=== PATIENT | female | born 1960 | race Caucasian/White ===

== ENCOUNTER 2022-11-17 01:03 | Outpatient (CLI) | payer MEDICAID | END 2022-11-17 23:59 | disposition critical access hospital (66) | LOC: EMS 01:03 | DX: T40.5X1A Poisoning by cocaine, accidental (unintentional), initial encounter (principal); I46.8 Cardiac arrest due to other underlying condition | CPT/HCPCS: A0425; A0427; A0999 ==

== ENCOUNTER 2022-11-17 01:21 | Observation (INO) | payer MEDICAID ==
[2022-11-17] MEDS ORDERED: SODIUM CHLORIDE 0.9% 1,000 ML IV STA (01:48)
[2022-11-17 01:55] LABS: MUDS CUTOFF CONCENTRATIONS CUTOFF CONC BELOW:
[2022-11-17 01:57] LABS: BASOPHILS # (AUTO) 0.1 10^3/uL (0.0-0.1); BASOPHILS % (AUTO) 0.5 %; EOSINOPHILS # (AUTO) 0.1 10^3/uL (0.0-0.7); EOSINOPHILS % (AUTO) 1.2 %; HCT - HEMATOCRIT 44.8 % (37.0-47.0); HGB - HEMOGLOBIN 14.3 g/dL (12.0-16.0); LYMPHOCYTES # (AUTO) 3.4 10^3/uL (1.5-3.5); LYMPHOCYTES % (AUTO) 36.9 %; MEAN CORPUSCULAR HEMOGLOBIN 29.4 pg (27.0-31.0); MEAN CORPUSCULAR HGB CONC 31.9 g/dL (32.0-36.0); MEAN PLATELET VOLUME 9.2 fL (7.9-10.8); MONOCYTES # (AUTO) 0.6 10^3/uL (0.0-1.0); MONOCYTES % (AUTO) 6.3 %; NEUTROPHILS % (AUTO) 54.2 %; PLT - PLATELET COUNT 288 10^3/uL (130-450); RED BLOOD COUNT 4.87 10^6/uL (4.20-5.40); RED CELL DISTRIBUTION WIDTH 12.1 % (12.0-15.0); WHITE BLOOD COUNT 9.3 x10^3/uL (4.8-10.8)
[2022-11-17 01:59] LABS: BILIRUBIN,URINE NEGATIVE (NEGATIVE); GLUCOSE, URINE (UA) 250 mg/dL (NEGATIVE); KETONES,URINE (UA) NEGATIVE (NEGATIVE); LEUKOCYTE ESTERASE, URINE MODERATE (NEGATIVE); NITRITE,URINE NEGATIVE (NEGATIVE); OCCULT BLOOD,URINE SMALL (NEGATIVE); PROTEIN,URINE 100 mg/dL (NEGATIVE); UROBILINOGEN,URINE 0.2 (NORMAL) E.U./dL (NORMAL)
[2022-11-17 02:06] LABS: CLARITY,URINE CLEAR (CLEAR)
[2022-11-17 02:12] LABS: SQUAMOUS EPITHELIAL CELL,UR RARE Squamous (<= Few); WBC CLUMPS,URINE PRESENT; WBC,URINE >25 /HPF (0-5)
[2022-11-17 02:13] LABS: AMPHETAMINE SCREEN,URINE POSITIVE (NEGATIVE); BACTERIA,URINE Many /HPF (None Seen); BARBITURATE SCREEN,UR NEGATIVE (NEGATIVE); BENZODIAZEPINES SCREEN, URINE NEGATIVE (NEGATIVE); COCAINE SCREEN URINE POSITIVE (NEGATIVE); METHADONE SCREEN, URINE NEGATIVE (NEGATIVE); METHAMPHETAMINES SCREEN, URINE POSITIVE (NEGATIVE); OPIATE SCREEN, URINE NEGATIVE (NEGATIVE); OXYCODONE SCREEN, URINE NEGATIVE (NEGATIVE); PROPOXYPHENE SCREEN, URINE NEGATIVE (NEGATIVE); THC CANNABINOID SCREEN, URINE NEGATIVE (NEGATIVE); TRICYCLIC ANTIDEPRESSANT,URINE NEGATIVE (NEGATIVE)
[2022-11-17 02:19] LABS: THYROID STIMULATING HORMONE 4.27 uIU/mL (0.34-5.60)
[2022-11-17 02:20] LABS: ACETAMINOPHEN 0.2 ug/mL; ALBUMIN/GLOBULIN RATIO 1.5 (1.0-2.2); ALKALINE PHOSPHATASE 69 IU/L (42-121); ALT ALANINE AMINOTRANSFERASE 106 IU/L (10-60); AST ASPARTATE AMINOTRANSFERASE 137 IU/L (10-42); BILIRUBIN,TOTAL 0.5 mg/dL (0.2-1.0); BUN - BLOOD UREA NITROGEN 14 mg/dL (6-20); CALCIUM 8.6 mg/dL (8.5-10.3); CARBON DIOXIDE - CO2 26 mmol/L (21-32); CHLORIDE 106 mmol/L (101-111); CK- CREATINE KINASE 82 IU/L (30-223); CREATININE 0.8 mg/dL (0.6-1.3); ETOH - ETHANOL < 10.0 mg/dL; GFR - MDRD 73 (>89); GLUCOSE 205 mg/dL (74-104); LIPASE 52 U/L (11-82); MAGNESIUM 1.9 mg/dL (1.7-2.3); POTASSIUM 3.2 mmol/L (3.5-4.5); SODIUM 138 mmol/L (135-145); TOTAL PROTEIN 6.7 g/dL (6.4-8.9)
[2022-11-17 02:24] LABS: SALICYLATE < 1.5 mg/dL
[2022-11-17] MEDS ORDERED: POTASSIUM CHLOR 10 MEQ/100 ML 10 MEQ/100 ML BAG IV STA (02:28)
--- NOTE | 2022-11-17 03:20 | ED Physician Documentation ---
History of Present Illness - Stated complaint Stated Complaint: OD - Chief complaint Chief Complaint: Neuro - History obtained from History obtained from: EMS - Additonal information Additional information: 61yF presents to the ED bibems s/p likely fentanyl overdose. patient required 8mg IN narcan in the field and upon arrival to the ED was protecting airway, breathing spontaneously. further history limited by patient intoxication. PD PAST MEDICAL HISTORY - Past Medical History Past Medical History: Yes Psych: Other Other Past Medical History: Admitted of abusing Meth - Past Surgical History Past Surgical History: No - Present Medications Home Medications: Ambulatory Orders Medication Instructions Recorded Confirmed No Known Home Medications 11/17/22 11/17/22 - Allergies Allergies/Adverse Reactions: Allergies Allergy/AdvReac Type Severity Reaction Status Date / Time No Known Drug Allergies Allergy Verified 11/17/22 01:50 - Social History Does the pt smoke?: Yes Smoking Status: Current every day smoker Does the pt drink ETOH?: Yes Does the pt have substance abuse?: Yes Substance Use and Type: Meth - Immunizations Immunizations are current?: Yes - POLST Patient has POLST: No PD ED PE NORMAL - Vitals Vital signs reviewed: Yes - General General: No acute distress, Other (elderly appearing. protecting airway, breathing spontaneously. clinically intoxicated) - HEENT HEENT: Atraumatic, PERRL, EOMI - Neck Neck: Supple, no meningeal sign - Cardiac Cardiac: RRR - Respiratory Respiratory: No respiratory distress, Clear bilaterally - Abdomen Abdomen: Non tender, Non distended - Derm Derm: Normal color, Warm and dry - Extremities Extremities: No deformity - Neuro Eye Opening: To Voice Motor: Obeys Commands Verbal: Confused GCS Score: 13 - Psych Psych: Other (clinically intoxicated) Results - Vitals Vitals: Vital Signs - 24 hr 11/17/22 11/17/22 11/17/22 01:21 01:30 02:00 Temperature 36.0 C L Heart Rate 85 78 77 Respiratory 18 12 12 Rate Blood Pressure 152/79 H 134/85 H 118/77 O2 Saturation 97 95 95 If not protocol : Oxygen Flow, liters/minute 11/17/22 11/17/22 11/17/22 02:10 02:48 03:00 Temperature 36.3 C L Heart Rate 77 81 83 Respiratory 12 12 12 Rate Blood Pressure 118/77 110/75 149/68 H O2 Saturation 96 94 94 If not protocol : Oxygen Flow, liters/minute 11/17/22 11/17/22 11/17/22 03:30 04:00 04:19 Temperature Heart Rate 81 82 83 Respiratory 13 17 13 Rate Blood Pressure 148/85 H 123/72 123/72 O2 Saturation 95 81 L If not protocol : Oxygen Flow, liters/minute 11/17/22 11/17/22 11/17/22 04:20 04:30 05:00 Temperature Heart Rate 83 79 Respiratory 13 20 Rate Blood Pressure 113/72 110/67 O2 Saturation 98 100 100 If not protocol 2 2 2 : Oxygen Flow, liters/minute 11/17/22 06:41 Temperature Heart Rate 81 Respiratory 13 Rate Blood Pressure 106/71 O2 Saturation 100 If not protocol 2 : Oxygen Flow, liters/minute Oxygen O2 Source Nasal cannula Oxygen Flow Rate 2 - Labs Labs: Laboratory Tests 11/17/22 11/17/22 11/17/22 01:35 01:35 01:45 WBC 9.3 RBC 4.87 Hgb 14.3 Hct 44.8 MCV 92.0 MCH 29.4 MCHC 31.9 L RDW 12.1 Plt Count 288 MPV 9.2 Neut # (Auto) 5.0 Lymph # (Auto) 3.4 [place] # (Auto) 0.6 Eos # (Auto) 0.1 Baso # (Auto) 0.1 Absolute Nucleated RBC 0.00 Nucleated RBC % 0.0 Sodium 138 Potassium 3.2 L Chloride 106 Carbon Dioxide 26 Anion Gap 6.0 BUN 14 Creatinine 0.8 Estimated GFR (MDRD) 73 L Glucose 205 H Calcium 8.6 Magnesium 1.9 Total Bilirubin 0.5 AST 137 H ALT 106 H Alkaline Phosphatase 69 Total Creatine Kinase 82 Total Protein 6.7 Albumin 4.0 Globulin 2.7 Albumin/Globulin Ratio 1.5 Lipase 52 TSH 4.27 Urine Color YELLOW Urine Clarity CLEAR Urine pH 7.0 Ur Specific [place] 1.020 Urine Protein 100 H Urine Glucose (UA) 250 H Urine Ketones NEGATIVE Urine Occult Blood SMALL H Urine Nitrite NEGATIVE Urine Bilirubin NEGATIVE Urine Urobilinogen 0.2 (NORMAL) Ur Leukocyte Esterase MODERATE H Urine RBC 11-25 H Urine WBC >25 H Urine WBC Clumps PRESENT Ur Squamous Epith Cells RARE Squamous Urine Bacteria Many H Ur Microscopic Review INDICATED Urine Culture Comments INDICATED Salicylates < 1.5 Urine Opiates Screen NEGATIVE Ur Oxycodone Screen NEGATIVE Urine Methadone Screen NEGATIVE Ur Propoxyphene Screen NEGATIVE Acetaminophen 0.2 Ur Barbiturates Screen NEGATIVE Ur Tricyclics Screen NEGATIVE Ur Phencyclidine Scrn NEGATIVE Ur Amphetamine Screen POSITIVE H U Methamphetamines Scrn POSITIVE H U Benzodiazepines Scrn NEGATIVE Urine Cocaine Screen POSITIVE H U Cannabinoids Screen NEGATIVE Ethyl Alcohol < 10.0 PD Medical Decision Making - ED course ED course: 61yF presents s/p likely fentanyl overdose with 8mg IN narcan recruitment manager. Patient protecting airway, breathing spontaneously. CBC, abdominal panel, tox labs performed. looks okay with exception of some hypokalemia. 1L IVF administered. supplemental IV potassium provided. Patient still intoxicated at time of 7am shift change, requiring 1L o2 nasal cannula, breathing spontaneously at 14/min. GCS 13 - [id number], protecting airway, therefore will plan to endorse to hospitalist for admission for further monitoring. Departure - Departure Disposition: ED Place in Observation Clinical Impression: Overdose Condition: Fair Forms: PCP List
[2022-11-17] MEDS ORDERED: SODIUM CHLORIDE FLUSH 0.9% 10 ML SYRINGE IVP PRN (07:56)
[2022-11-17] MEDS ORDERED: SODIUM CHLORIDE 0.9% 1,000 ML IV SCH (08:00)
--- NOTE | 2022-11-17 08:08 | HISTORY & PHYSICAL EXAMINATION ---
Chief Complaint - Chief Complaint Chief Complaint: Unconscious History of Present Illness - Admitted From Admitted From:: ED - History Obtained From History obtained from: ED provider and chart review - History of Present Illness HPI Comment/Other: This is a 61-year-old white female about whom we have no past medical history. She has never been to this hospital before. At approx 0100 today, 911 was called to an apartment for 2 people that were unconscious. The ambulance note states that she had stable vital signs on their arrival howeve, our Triage nursing notes state that CPR was underway at their arrival. (Unclear if the CPR was on the other of the 2 patients). This patient received Narcan intranasally and was started on IV fluids. Upon presentation to the ER she was somnolent, had stable vital signs. She has been monitored in the ED for about 4 hours. She is now able to speak when aroused. She was able to state that she is a meth user and smokes cigarettes. Her airway is protected however approximately 2 hours ago her O2 saturation dropped to 81% and she was put on 2 L O2 nasal cannula. Her work- up in our ED shows normal electrolytes except potassium 3.2, and she received K replacement. She has a mildly elevated AST 137 and ALT 106. Glu 205. Normal CBC. Abnormal urinalysis. She was not given empiric antibiotics since ED provider was waiting for her to awaken to discuss if she had dysuria symptoms first. The ED provider told me that the suspicion was a fentanyl overdose. Her toxicology screen shows cocaine, amphetamine and methamphetamine present, however we do not test for fentanyl. Her chest x-ray was read as having cardiomegaly and volume overload. The ED provider spoke to me about this patient. She will be placed in Observati on to manage while she is still obtunded and hypoxic. Since she is still obtunded, her CODE status will be a Full Code by default. History - Past Medical History Psych: reports: Other MRSA Hx?: No Other Past Medical History: Admitted of abusing Meth. No other past medical history can be determined because of her obtundation. - Past Surgical History Other past surgical history: No past surgical history is obtainable because of her obtundation - Family & Social History Family History Comment/Other: Unknown Social History Notes: Her living situation is unknown. She did states she is a meth user and smokes cigarettes. Alcohol history or other substance abuse is unknown. Her medication list is unknown. - POLST Patient has POLST: No Meds/Allgy - Home Medications Home Medications: Ambulatory Orders Medication Instructions Recorded Confirmed No Known Home Medications 11/17/22 11/17/22 - Allergies Allergies/Adverse Reactions: Allergies Allergy/AdvReac Type Severity Reaction Status Date / Time No Known Drug Allergies Allergy Verified 11/17/22 01:50 Review of Systems - All Other Systems All Other Systems: reports: Other (Not obtainable because of obtunded condition) Exam - Vital Signs Reviewed Vital Signs: Yes Vital Signs: Vital Signs x48h Temp Pulse Resp BP Pulse Ox O2 Flow Rate 11/17/22 07:30 80 14 108/67 100 11/17/22 06:41 81 13 106/71 100 2 11/17/22 05:00 79 20 110/67 100 2 11/17/22 04:30 83 13 113/72 100 2 11/17/22 04:20 98 2 11/17/22 04:19 83 13 123/72 81 L 11/17/22 04:00 82 17 123/72 11/17/22 03:30 81 13 148/85 H 95 11/17/22 03:00 36.3 C L 83 12 149/68 H 94 11/17/22 02:48 81 12 110/75 94 11/17/22 02:10 77 12 118/77 96 11/17/22 02:00 77 12 118/77 95 11/17/22 01:30 78 12 134/85 H 95 11/17/22 01:21 36.0 C L 85 18 152/79 H 97 - Physical Exam General Appearance: positive: No acute distress, Lethargic (Moans when she is asked her name or touched) Eyes Bilateral: positive: No lid inflammation ENT: positive: Dry mucous membranes, Other (wearing O2 n.c.. Her upper jaw is edentulous) Neck: positive: Nml inspection, No JVD Respiratory: positive: No respiratory distress, Breath sounds nml Cardiovascular: positive: Regular rate & rhythm, No murmur Abdomen: positive: Non-tender, Nml bowel sounds, No distention Skin: positive: Warm, Dry Extremities: positive: Non-tender, No pedal edema Neurologic/Psychiatric: positive: Other (Obtunded, moans/grunts when spoken to or is shaken, moves all extrem spontaneously) Conclusion/Plan - Problem List (1) AMS (altered mental status) Conclusion/Plan: The patient presents obtunded, presumably from a substance that was ingested. She received Narcan which had possibly slight effect. In the ED she was somnolent for 6 hours. She has stable vital signs and respiratory rate Plan: We will obtain a head CT to assure there is no hemorrhage or other abnormality, as no head CT was done while she was in ER Place in Observation, monitoring her airway, vital signs, and her neuro status q2h I will order a nursing swallowing screen as she awakens, before ordering a diet Cont maintenance iv fluids Qualifiers: Altered mental status type: stupor Qualified Code(s): R40.1 - Stupor (2) Overdose Conclusion/Plan: Per the ED provider discussion with me, this was a fentanyl overdose, possibly in the form of marijuana laced with fentanyl. There are no documented discussions with the patient that she used fentanyl however. Plan: When she is awake, a one-to-one observation will be ordered, in case this was an attempted suicide Social work consult will be requested when the patient is awake and alert (3) Hypoxia Conclusion/Plan: Initially she had stable vital signs and oxygenation. She did start to receive IV fluids. Approximately 2-3 hours ago she desaturated to 81% on room air and has been put on 2 L O2 supplemental oxygen, now saturating 96% Chest x-ray was done and shows cardiomegaly and CHF. Unclear if the CHF reading is from poor inspiration, which I suspect in a somniolent pt Plan: Continue with supplemental O2, target saturation will be 92%. I will decrease her IV fluids because of the CHF but not give Lasix, unless her desats worsen No indication to give empiric IV antibiotics She is not awake enough to be ordered an incentive spirometer (4) Bacteriuria Conclusion/Plan: Plan: When she is awake, we will discuss if she had any symptoms to see if she is a candidate for antibiotic to be ordered Follow WBC daily (5) Abnormal CXR Conclusion/Plan: Chest x-ray was done and shows cardiomegaly and CHF. Unclear if the CHF reading is from poor inspiration Plan: Place on telemetry Obtain a BNP. Obtain EKG and if this is abnormal then we will run a set of troponins We will repeat a chest x-ray when she is awake and alert I will decrease her IV fluids because of the CHF but not give Lasix, unless her desats worsen - Lab Results Fish Bones: 11/17/22 01:35 11/17/22 08:49 - Diagnostic Imaging Results Diagnostic Imaging Results: positive: Final report reviewed
--- NOTE | 2022-11-17 08:30 | XRAY Report ---
PROCEDURE: Chest 1 View X-Ray INDICATIONS: hypoxia, overdose TECHNIQUE: One view of the chest was acquired. COMPARISON: None. FINDINGS: Surgical changes and devices: None. Lungs and pleura: No pleural effusions or pneumothorax. There is mild pulmonary vascular congestion . No definite focal infiltrate. Mediastinum: Mediastinal contours appear normal. Heart size is normal. Bones and chest wall: No suspicious bony lesions. Overlying soft tissues appear unremarkable. IMPRESSION: Mild congestion. No definite focal infiltrate. No pleural effusion or pneumothorax. Findings are concordant with preliminary interpretation provided by [facility]. Reviewed by: Tonny Christina MD on 11/17/2022 8:29 AM PDT Approved by: Tonny Christina MD on 11/17/2022 8:29 AM PDT Station ID: [id number]
[2022-11-17] MEDS: SODIUM CHLORIDE 0.9% 1,000 ML IV SCH (08:52)
[2022-11-17] MEDS: SODIUM CHLORIDE FLUSH 0.9% 10 ML SYRINGE IVP SCH ×2 (08:52→17:50)
--- NOTE | 2022-11-17 08:53 | CT Report ---
PROCEDURE: HEAD WO INDICATIONS: Obtunded TECHNIQUE: Noncontrast 4.5 mm thick angled axial sections acquired from the foramen magnum to the vertex. For r adiation dose reduction, the following was used: automated exposure control, adjustment of mA and/or kV according to patient size. COMPARISON: None. FINDINGS: Image quality: Excellent. CSF spaces: Basal cisterns are patent. No extra-axial fluid collections. Ventricles are normal in size and shape. Brain: No midline shift. No intracranial masses or hemorrhage. Elizalde-white matter interface is norm al. Skull and face: Calvarium and visualized facial bones are intact, without suspicious lesions. Sinuses: Visualized sinuses and mastoids are clear. IMPRESSION: 1. No acute intracranial process. Reviewed by: Maggy Mccarty MD on 11/17/2022 8:51 AM PDT Approved by: Maggy Mccarty MD on 11/17/2022 8:51 AM PDT Station ID: [id number]
[2022-11-17 09:12] LABS: CALCIUM 8.8 mg/dL (8.5-10.3); CREATININE 0.6 mg/dL (0.6-1.3); POTASSIUM 4.8 mmol/L (3.5-4.5)
--- NOTE | 2022-11-17 14:47 | PHARMACY PROGRESS NOTE ---
- Best Possible Medication History Admit Date and Time: 11/17/22 0756 Processed by: Pharmacy Medication History completed: Yes Patient Interview: Pt unable to participate Secondary Source(s): Insurance records patient unable to give medication history, insurance records reveal nothing and no pharmacies on record. As the person ultimately responsible for medication therapy, providers are able to order a medication from an existing home medication list in [facility] via the "Reconcile Routine" prior to Confirmation of that medication by manager product support. Such practice is discouraged except when the physician, in their clinical judgment, deems that a medical need exists for a medication without regard to previous use.
[2022-11-17] MEDS: ONDANSETRON 4 MG/2 ML VIAL IVP PRN (22:27)
[2022-11-18] MEDS ORDERED: PROCHLORPERAZINE 10 MG/2 ML VIAL IVP PRN (00:05)
[2022-11-18] MEDS: SODIUM CHLORIDE FLUSH 0.9% 10 ML SYRINGE IVP SCH ×4 (00:41→23:33)
[2022-11-18] MEDS: SODIUM CHLORIDE 0.9% 1,000 ML IV SCH ×3 (01:37→16:20)
--- NOTE | 2022-11-18 09:26 | PROVIDER PROGRESS NOTE ---
Subjective - Prog Note Date Prog Note Date: 11/18/22 - Subjective Subjective: She is more alert. She is able to tell me what month it is but not the year. She knows she is at the hospital but does not know which one. She feels thirsty. Denies pain. Current Medications - Current Medications Current Medications: Active Medications Sodium Chloride (Normal Saline 0.9%) 1,000 mls @ 60 mls/hr IV .[id number] [facility] Last Admin: 11/18/22 01:37 Dose: 60 mls/hr Ondansetron HCl (Ondansetron 4 Mg/2 Ml Vial) 4 mg IVP Q6HR PRN PRN Reason: Nausea / Vomiting Last Admin: 11/17/22 22:27 Dose: 4 mg Prochlorperazine Edisylate (Prochlorperazine 10 Mg/2 Ml Vial) 10 mg IVP Q6HR PRN PRN Reason: Nausea / Vomiting Last Admin: 11/18/22 00:41 Dose: 10 mg Sodium Chloride (Sodium Chloride Flush 0.9% 10 Ml Syringe) 10 ml IVP PRN PRN PRN Reason: NEEDED PER PROVIDER ORDERS Sodium Chloride (Sodium Chloride Flush 0.9% 10 Ml Syringe) 10 ml IVP 0100,0900,1700 [facility] Last Admin: 11/18/22 00:41 Dose: 10 ml No Known Home Medications 11/17/22 Objective - Vital Signs/Intake & Output Reviewed Vital Signs: Yes Vital Signs: Vital Signs x48h Temp Pulse Resp BP Pulse Ox O2 Flow Rate 11/18/22 08:36 36.8 C 85 20 104/53 L 97 2 11/18/22 05:13 13 11/18/22 05:00 36.5 C 79 10 L 100/57 L 97 3 Intake & Output: Intake & Output 11/15/22 11/16/22 11/17/22 11/18/22 23:59 23:59 23:59 23:59 Intake Total 1100 1000 Output Total 1600 0 Balance -500 1000 - Objective General Appearance: positive: No acute distress, Lethargic (easily aroused) Eyes Bilateral: positive: Conjunctivae nml ENT: positive: ENT inspection nml, Dry mucous membranes Respiratory: positive: No respiratory distress. negative: Wheezes, Rales Cardiovascular: positive: Regular rate & rhythm, No murmur Skin: positive: Warm, Dry Extremities: positive: No pedal edema Neurologic/Psychiatric: positive: Disoriented to time, Other (No focal deficits. Moves all four extremities.). negative: Disoriented to person, Disoriented to place - Lab Results Fish Bones: 11/17/22 01:35 11/17/22 08:49 ABX Reporting Has patient been on IV antibiotics over the past 48 hours?: No Assessment/Plan - Problem List (1) Encephalopathy acute Impression: This appears to be secondary to drug overdose. Urine toxicology was positive for methamphetamines and cocaine. CT of the head showed no acute maladies. Patient is more alert today but still quite lethargic and not oriented to year. No focal deficits on exam. We will continue IV hydration and continue to hold sedatives. Suspect she will need to be hospitalized for 1 more day until her mentation improves. We will start clear liquid diet. Will need further discussion with the patient regarding her drug use and she denies illicit drug use but her urine toxicology suggests otherwise. Social work consult. (2) Overdose Impression: Suspect she overdosed which caused her encephalopathy. Urine toxicology is positive for methamphetamines and cocaine. Concern is that this may have been potentially laced with fentanyl or opioids. She is more alert today as mentioned above but still not at baseline. She will need social work to help provide resources regarding substance abuse. (3) Nausea & vomiting Impression: She had episode of emesis this morning after trying clear liquids. She reports some abdominal discomfort. She does have mild tenderness on exam. Will order abdominal x-ray to start and will consider CT if ongoing pain or emesis per sists. Continue IV hydration. Zofran as needed for nausea. (4) Abnormal CXR Impression: Initial chest x-ray suggested mild pulmonary edema and suspect this may have been due to the drug overdose. BNP is within normal limits and she has no peripheral edema to suggest CHF. She is requiring 1 L of oxygen but suspect this is related to her somnolence rather than the edema. Continue to monitor at this time. (5) Bacteriuria Impression: Urinalysis reveals pyuria and bacteriuria but she has no urinary symptoms. Con tinue to hold off on antibiotics at this time.
--- NOTE | 2022-11-18 10:30 | XRAY Report ---
PROCEDURE: Abdomen 1 View X-Ray INDICATIONS: Nausea/vomiting. TECHNIQUE: One view of the abdomen acquired. COMPARISON: None. FINDINGS: Surgical changes and devices: None. Bowel: Bowel gas pattern is normal. Soft tissues: No suspicious abdominal calcifications. Visualized solid organ contours appear normal in size. Bones: No suspicious bony lesions. IMPRESSION: No acute abdominal pathology. Reviewed by: Maggy Mccarty MD on 11/18/2022 10:29 AM PDT Approved by: Maggy Mccarty MD on 11/18/2022 10:29 AM PDT Station ID: [id number]
[2022-11-18] MEDS: ONDANSETRON 4 MG/2 ML VIAL IVP PRN (20:02)
[2022-11-19] MEDS: SODIUM CHLORIDE 0.9% 1,000 ML IV SCH (01:46)
[2022-11-19 06:01] LABS: BASOPHILS % (AUTO) 0.2 %; EOSINOPHILS % (AUTO) 0.2 %; HCT - HEMATOCRIT 40.4 % (37.0-47.0); LYMPHOCYTES # (AUTO) 1.1 10^3/uL (1.5-3.5); LYMPHOCYTES % (AUTO) 10.5 %; MEAN CORPUSCULAR HGB CONC 32.2 g/dL (32.0-36.0); MEAN CORPUSCULAR VOLUME 93.1 fL (81.0-99.0); MEAN PLATELET VOLUME 9.2 fL (7.9-10.8); MONOCYTES # (AUTO) 0.8 10^3/uL (0.0-1.0); MONOCYTES % (AUTO) 7.1 %; NEUTROPHILS # (AUTO) 8.6 10^3/uL (1.5-6.6); NEUTROPHILS % (AUTO) 81.7 %; PLT - PLATELET COUNT 223 10^3/uL (130-450); RED BLOOD COUNT 4.34 10^6/uL (4.20-5.40); WHITE BLOOD COUNT 10.5 x10^3/uL (4.8-10.8)
[2022-11-19 06:09] LABS: ALBUMIN 3.5 g/dL (3.2-5.5); ALBUMIN/GLOBULIN RATIO 1.4 (1.0-2.2); BILIRUBIN,TOTAL 0.6 mg/dL (0.2-1.0); CREATININE 0.5 mg/dL (0.6-1.3); POTASSIUM 3.7 mmol/L (3.5-4.5)
[2022-11-19] MEDS: ONDANSETRON 4 MG/2 ML VIAL IVP PRN (07:44)
[2022-11-19] MEDS: SODIUM CHLORIDE FLUSH 0.9% 10 ML SYRINGE IVP SCH (07:44)
[2022-11-19] MEDS ORDERED: ACETAMINOPHEN 325 MG TABLET PO PRN (08:47)
--- NOTE | 2022-11-19 11:37 | Discharge Plan ---
Discharge Plan Problem Reviewed?: Yes Disposition: Home, Self Care Condition: Fair Diet: Regular Activity Restrictions: Activity as Tolerated Shower Restrictions: No Driving Restrictions: Yes Health Concerns: Unfortunately you have an ongoing problem of a bipolar disorder. You also have substance abuse in the form of methamphetamine intake. Both of these, on an on going basis, make you unable to be compliant with your bipolar medication which makes everything worse. You recently bought some new drugs, and thought you were only taking methamphetamines. Unfortunately they were most likely laced with fentanyl. This caused you to become very sleepy, and almost stopped breathing. You were brought to the emergency room because of this Plan of Treatment: We supported you for 2 days. We gave you IV fluids to make sure you hydrated. Make sure you kept on breathing normally. You gradually woke up and now have returned to an alert status that allows you to feed herself, dress herself, and be able to get out of bed independently. You are still manifesting truncated speech, multiple thought process all at once, and think that your bipolar disorder is not stable Care Goals: Please make sure that you see a primary care provider in follow-up. Or a mental health provider. You need to get your bipolar disorder under control. Assessment: And has notPatient is alert to place, time, no recollection of the accidental overdose. is at the bedside but does not live with her No Smoking: If you smoke, Please STOP! Call for help.
[2022-11-19 12:33] VITALS: BP 125/72; O2SAT 91
--- NOTE | 2022-11-19 21:58 | DISCHARGE SUMMARY ---
Discharge Summary Admit Date: 11/17/22 Discharge Date: 11/19/22 Discharging Provider: Ember Hay MD Primary Care Provider: no PCP Condition at Discharge: Fair Discharge Disposition: 01 Home, Self Care - DIAGNOSES Discharge Diagnoses with Status of Each Condition: 1. Acute metabolic encephalopathy secondary to #2 2. Accidental drug overdose 3. Methamphetamine, cocaine and fentanyl abuse 4. Nausea and vomiting 5. Abnormal chest x-ray 6. Asymptomatic bacteriuria 7. History of bipolar disorder - HPI History of Present Illness: This is a 61-year-old white female about whom we have no past medical history. She has never been to this hospital before. At approx 0100 today, 911 was called to an apartment for 2 people that were unconscious. The ambulance note states that she had stable vital signs on their arrival howeve, our Triage nursing notes state that CPR was underway at their arrival. (Unclear if the CPR was on the other of the 2 patients). This patient received Narcan intranasally and was started on IV fluids. Upon presentation to the ER she was somnolent, had stable vital signs. She has been monitored in the ED for about 4 hours. She is now able to speak when aroused. She was able to state that she is a meth user and smokes cigarettes. Her airway is protected however approximately 2 hours ago her O2 saturation dropped to 81% and she was put on 2 L O2 nasal cannula. Her work- up in our ED shows normal electrolytes except potassium 3.2, and she received K replacement. She has a mildly elevated AST 137 and ALT 106. Glu 205. Normal CBC. Abnormal urinalysis. She was not given empiric antibiotics since ED provider was waiting for her to awaken to discuss if she had dysuria symptoms first. The ED provider told me that the suspicion was a fentanyl overdose. Her toxicology screen shows cocaine, amphetamine and methamphetamine present, however we do not test for fentanyl. Her chest x-ray was read as having cardiomegaly and volume overload. The ED provider spoke to me about this patient. She will be placed in Observation to manage while she is still obtunded and hypoxic. Since she is still obtunded, her CODE status will be a Full Code by default. History - Past Medical History Psych: reports: Other MRSA Hx?: No Other Past Medical History: Admitted of abusing Meth. No other past medical history can be determined because of her obtundation. - Past Surgical History Other past surgical history: No past surgical history is obtainable because of her obtundation - Family & Social History Family History Comment/Other: Unknown Social History Notes: Her living situation is unknown. She did states she is a meth user and smokes cigarettes. Alcohol history or other substance abuse is unknown. Her medication list is unknown. - CONSULTS | PROCEDURES Procedures: Chest x-ray with mild congestion and no focal infiltrate. Head CT is without acute intracranial process Abdomen x-ray, plain film, without acute abdominal pathology Urine culture with less than 10,000 colony-forming units Toxicology screen positive for amphetamines, methamphetamines, cocaine. Negative for alcohol, salicylates and other usually screened substances - HOSPITAL COURSE Hospital Course: Patient finally woke up enough to tell us who to call. She is still and we called her . He explained to nursing that his has a bipolar disorder and she has been noncompliant with medications and is not currently seeing a provider. She tells us that she was only needing to use methamphetamine and she did not know that her methamphetamine was laced with something else. She is adamant that she will never abuse drugs again. She wanted to go home and her was willing to pick her up. Other than supportive care to make sure she stays breathing, hydrated, no other treatment was done during her stay. We verified that she was able to eat and drink before she left. Temperature is 36.7. Heart rate 72. Blood pressure 125/72. Respirations 15. Anywhere between 91 to 99% on room air. She is a slender, disheveled female at 5 foot 4 inches tall, 45 kg. Body odor present from lack of hygiene. Lungs are clear, 1 occasional cough during my exam. But no tachypnea or increased respir atory effort. Irregular rate and rhythm without a murmur. And abdomen that was soft, hypoactive bowel sounds, nontender. Last known bowel movement per the patient was November 14. She had abrasions and scratches on her feet, hands and forearms. Neurologically she was oriented to person, place, situation but very forgetful with a scattered fragmented thought process expressed through her speech patterns. But no focal deficits. No tremors. And again wanting to go home. Prior to discharge: SW met with patient at bedside, patient A/O x4 and requesting to DC. Patient denies having a PCP or primary pharmacy. Patient lives in a single-story home with her in [place] at times, other times she resides with various homeless communities in [facility]. Prior to admission patient was independent all ADLs and IADLs. Patient endorses being a pack a day smoker as well as "occasional" meth and cocaine use. Patient believe she was given fentanyl and that is what led to her hospitalization. Patients is a strong support and is willing to have pt DC home with him into a sober living environment. MHE completed, see for further details. Saftey plan completed, patient given resources on [facility] treatment in the area, crisis facilities and outpatient mental health services. - ALLERGIES Allergies/Adverse Reactions: Allergies Allergy/AdvReac Type Severity Reaction Status Date / Time No Known Drug Allergies Allergy Verified 11/17/22 01:50 - MEDICATIONS Home Medications: Ambulatory Orders Medication Instructions Recorded Confirmed No Known Home Medications 11/17/22 11/17/22 - LABS Result Diagrams: 11/19/22 05:32 11/19/22 05:32
== END 2022-11-19 12:50 | disposition home or self-care (01) ==
LOC: ED 01:21 → MS2 07:56
PROVIDERS: ADMIT Internal Medicine; ATTEND Specialist
DX: T50.901A Poisoning by unspecified drugs, medicaments and biological substances, accidental (unintentional), initial encounter (principal); G92.8 Other toxic encephalopathy; R40.0 Somnolence; R40.1 Stupor; F11.10 Opioid abuse, uncomplicated; F14.10 Cocaine abuse, uncomplicated; F15.10 Other stimulant abuse, uncomplicated; R11.2 Nausea with vomiting, unspecified; R91.8 Other nonspecific abnormal finding of lung field; R82.71 Bacteriuria; F31.9 Bipolar disorder, unspecified; R74.01 Elevation of levels of liver transaminase levels; F17.210 Nicotine dependence, cigarettes, uncomplicated; R09.02 Hypoxemia; I51.7 Cardiomegaly; R09.89 Other specified symptoms and signs involving the circulatory and respiratory systems; Z91.148 Patient's other noncompliance with medication regimen for other reason
CPT/HCPCS: 36415; 51701; 70450; 71045; 74018; 80048; 80053; 80306; 80307; 80320; 80329; 81001; 82550; 83690; 83735; 83880; 84443; 85025; 87086; 93005; 96361; 96365; 96375; 96376; 99284; 99285; A9270; G0378; 81003